=== PATIENT | female | born 1980 | race Caucasian/White ===

== ENCOUNTER 2018-11-20 19:20 | Emergency (ER) | payer OTHER ==
[~2018-11-20] VITALS: Ht 170.2 cm; Wt 83.5 kg
[2018-11-20 20:06] VITALS: Ht 170.2 cm; Wt 83.5 kg
[2018-11-20 22:21] VITALS: BP 142/87
== END 2018-11-20 22:21 | disposition home or self-care (01) ==
LOC: ED 19:20
DX: L02.213 Cutaneous abscess of chest wall (principal); L60.0 Ingrowing nail; E11.9 Type 2 diabetes mellitus without complications
CPT/HCPCS: J2001

== ENCOUNTER 2018-11-23 08:17 | Emergency (ER) | payer OTHER ==
[~2018-11-23] VITALS: Ht 167.6 cm; Wt 84.8 kg
[2018-11-23 08:22] VITALS: BP 126/89; Ht 167.6 cm; Wt 84.8 kg
== END 2018-11-23 11:10 | disposition home or self-care (01) ==
LOC: ED 08:17
DX: L60.0 Ingrowing nail (principal); Z48.01 Encounter for change or removal of surgical wound dressing
CPT/HCPCS: J2001

== ENCOUNTER 2018-12-19 13:04 | Inpatient (IN) | payer OTHER ==
[~2018-12-19] VITALS: Ht 167.6 cm; Wt 83.9 kg
[2018-12-19 13:07] VITALS: Ht 167.6 cm; Wt 83.9 kg
--- NOTE | 2018-12-19 15:09 | NUR ---
PT CAME TO THE ED TODAY WITH CO ABCESS TO R SIDE OF LABIA X 3 DAYS. PT STATES HAVING HX OF SAME BUT TOWARD THE OUTER PART. PT HAS NO OTHER SYMPTOMS. WILL CONTINUE TO MONITOR
--- NOTE | 2018-12-19 15:20 | NUR ---
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
[2018-12-19 16:02] LABS: BASOPHIL % 0.3 % (0-2); PLATELET COUNT 182 x10^3mcL (130-400); RED CELL DISTRIBUTION WIDTH 13.2 % (11.5-14.5)
[2018-12-19 16:04] LABS: UA SPECIFIC GRAVITY <=1.005 (1.005-1.035); microscopic required? YES; urine erythrocyte 3+ (NEGATIVE)
[2018-12-19 16:34] LABS: AMPHETAMINE QUAL UR NONE DETECTED (See below)
[2018-12-19 16:36] LABS: ALKALINE PHOSPHATASE 130 U/L (46-116); ALT/SGPT 8 U/L (14-59); AST/SGOT 7 U/L (15-37); BILIRUBIN TOTAL 0.7 mg/dL (0.20-1.00); CALCIUM 8.2 mg/dL (8.5-10.1); CARBON DIOXIDE 29.1 mmol/L (21-32); CHLORIDE SERUM 99 mmol/L (98-107); CREATININE SERUM 0.9 mg/dL (0.6-1.0); GFR1 > 60 mL/min; HDL CHOLESTEROL 46 mg/dL (40-60); LIPASE 150 IU/L (73-393); POTASSIUM SERUM 3.9 mmol/L (3.5-5.1); SODIUM SERUM 134 mmol/L (136-145); T4(THYROXINE) 9.1 ug/dL (4.7-13.3); TOTAL PROTEIN, SERUM 6.9 g/dL (6.4-8.2)
[2018-12-19 16:37] LABS: CHOLESTEROL 204 mg/dL (<200)
[2018-12-19 16:38] LABS: GLUCOSE SERUM 492 mg/dL (74-106)
--- NOTE | 2018-12-19 17:01 | NUR ---
PT RESTING COMFORTABLY ON GURNEY WITH NAD. BF AT BEDSIDE. WILL CONTINUE TO MONITOR.
[2018-12-19] MEDS ORDERED: FORTAMET1000 MG PO (17:58)
[2018-12-19] MEDS ORDERED: LIPI20 PO (17:58)
[2018-12-19] MEDS ORDERED: ACT30 PO (18:00)
--- NOTE | 2018-12-19 18:35 | NUR ---
REPORT GIVEN TO LISA FAUSTIN ON MS FOR FURTHER CARE OF PT
--- NOTE | 2018-12-19 19:00 | NUR ---
RECEIVED PT FROM ED VIA JACKIE, CAME IN DUE TO RIGHT LABIA PAIN SINCE TUESDAY. AAOX4. C/O 08/14 HEADACHE. DENIES DIZZINESS. ABLE TO FOLLOW COMMANDS. NO SOB NOTED, LUNG SOUNDS CTA. DENIES CHEST PAIN/PRESSURE, IO=107. DENIES ABDOMINAL DISCOMFORT. BOWEL SOUNDS ACTIVE. C/O PRESSURE ON URINATION, 08/14 RIGHT FLANK PAIN. C/O 6/10 RLE PAIN AND TINGLING SENSATION ON RLE. W/ PACKING ON THE RIGHT LABIA COVERED COVERED W/ DRESSING, S/P INCISION AND DRAINAGE AT ED. NOTED SANGUINEOUS DRAINAGE. W/ MULTIPLE SCABS ON RUE AND BLE FROM MOSQUITO BITES. IV SITE PATENT AND INTACT. SIDE RAILS UPX2. CALL LIGHT ON REACH. TMJR=915.4. COOLING MEASURES INTIATED. ENDORSED TO PRIMARY NURSE DINORA FOR CONTINUITY OF CARE
[2018-12-19 19:22] VITALS: BP 135/85
--- NOTE | 2018-12-19 22:28 | NUR ---
PT STATED I CAN'T TAKE TRAMADOL NOR HYDROCODONE THEY BOTH MAKES ME ITCH , I NORMALY TAKES TYLENOL #3 FOR PAIN AND I'M OK WITH IT , MEDICATE PT WITH TYLENOL #3 FOR GENERALIZED BODY ACHE AND H/A. WILL MONITOR PT CLOSELY .
--- NOTE | 2018-12-19 22:40 | NUR ---
OBTAINED WC AND SENT IT TO THE LAB ORDERED .
--- NOTE | 2018-12-20 01:57 | NUR ---
REPLACED RIGHT TERESA DRESSING PER PT SHE WENT TO THE BATHROOM AND THE DRESSING FELL OFF , NO DRAINAGE NOTED, PACKING INPLACE .PT DENY PAIN AT THE MOMENT .
[2018-12-20 04:31] VITALS: BP 104/69
--- NOTE | 2018-12-20 05:09 | NUR ---
I HAVE REVIEWED THE DATA COLLECTION BY [employer] REFINER BATCH MIXER (NAME):DINORA CASE ENTERED ON (DATE/TIME): I CONCUR WITH THE DATA AND ANY EXCEPTIONS OR COMMENTS ARE LISTED BELOW:
[2018-12-20 06:12] LABS: CALCIUM 7.4 mg/dL (8.5-10.1); CARBON DIOXIDE 24.6 mmol/L (21-32); CHLORIDE SERUM 106 mmol/L (98-107); CREATININE SERUM 0.6 mg/dL (0.6-1.0); GFR1 > 60 mL/min; GLUCOSE SERUM 212 mg/dL (74-106); POTASSIUM SERUM 3.5 mmol/L (3.5-5.1); SODIUM SERUM 139 mmol/L (136-145)
--- NOTE | 2018-12-20 06:21 | NUR ---
POST TYLENOL #3 PT DENY PAIN , ALL DUE MEDS GIVEN NO REACTION NOTED, PIV INTACT INFUSING WELL , DRESSING TO RIGHT LABIA INTACT NO DRAINAGE NOTED .
[2018-12-20 07:05] LABS: BASOPHIL % 0.2 % (0-2); PLATELET COUNT 157 x10^3mcL (130-400); RED CELL DISTRIBUTION WIDTH 13.2 % (11.5-14.5)
--- NOTE | 2018-12-20 07:05 | NUR ---
RECEIVED REPORT FROM DINORA ISBELL AT BEDSIDE, PT IN BED IN NO ACUTE DISTRESS
--- NOTE | 2018-12-20 07:46 | NUR ---
PT RESTING IN BED, IN NO ACUTE DISTRESS, VERBAL, ABLE TO MAKE NEEDS KNOWN, CALM AND COOPERATIVE, NO FACIAL DROOP/SLURRED SPEECH, PERRLA, NO REDNESS/DRAINAGE, DENIED PAIN/CP/PALPITATION, DENIED N/V/D, MEDSURG, RESP EVEN, NO SOB/COUGH, RA, CHEST RISE SYMMETRICALLY, ABD ROUND AND NON-TENDER TO TOUCH, BS ACTIVE X 4, PALP PULSES, CAP REFILL < 3S, SEE SKIN ASSESSMENT, SKIN C/D/W, IV PATENT AND INFUSING WELL, DRESSING CDI, AMBULATORY, CONTINENT, ALL NEEDS ADDRESSED AT THIS TIME, SAFETY PROTOCOL MAINTAINED, COTNINUE TO MONITOR
--- NOTE | 2018-12-20 08:32 | NUR ---
AM MED GIVEN PER MD ORDER VIA EMAR, TOLERATED WELL, NO ASE NOTED AT THIS TIME, EDUCATED PT R/T MED, ASE AND MONITOR, VERBALLY UNDERSTANDING, PT WENT TO BATHROOM, VOID X 1, REPORTED DRESSING CAME OFF, NEW DRESSING APPLIED TO WOUND AREA TO LABIA, TOLERATED WEL, CONTINUE TO MONITOR
[2018-12-20 09:02] VITALS: BP 108/69
--- NOTE | 2018-12-20 11:31 | NUR ---
PT REPORTED PAIN TO SURGICAL AREA, 09/13, DULL, MEDICATED PER PRN ORDER VIA EMAR, TOLERATED WELL, DRESSING C/D/I, BS CHECKED, INSULIN GIVEN PER SLIDING SCALE VIA EMAR , TAKEN WELL, EDUCATED R/T MED, DM, INSULIN, ASE AND MONITOR GIVEN TO PT, VERBALLY UNDERSTANDING, ALL NEEDS ADDRESSED AT THIS TIME, SAFETY PROTOCOL MAINTAINED, CONTINUE TO MONITOR
--- NOTE | 2018-12-20 13:15 | NUR ---
PT RESTING IN BED, IN NO ACUTE DISTRESS, DENIED PAIN/DISCOMFORT AT THIS TIME, TOLERATED LUNCH WELL, ALL NEEDS ADDRESSED AT THIS TIME, WATER PITCHER CHANGED AND REFILLED, CONTINUE TO MONITOR
[2018-12-20 16:34] VITALS: BP 112/73
--- NOTE | 2018-12-20 16:38 | NUR ---
PT REPORTED PAIN TO SURGICAL AREA, 09/13, DULL, LOCAL, MEDICATED PER PRN ORDER VIA EMAR, TOLERATED WELL, DRESSING C/D/I, BS CHECKED, INSULIN GIVEN PER SLIDING SCALE VIA EMAR , TAKEN WELL, EDUCATED R/T MED, DM, INSULIN, ASE AND MONITOR GIVEN TO PT, VERBALLY UNDERSTANDING, ALL NEEDS ADDRESSED AT THIS TIME, SAFETY PROTOCOL MAINTAINED, CONTINUE TO MONITOR
--- NOTE | 2018-12-20 17:39 | NUR ---
PT IN BED, IN NO ACUTE DISTRESS, RESP EVEN, MEDSURG, IV PATENT AND INFUSING WELL, DRESSING CDI, DENIED PAIN/DISCOMFORT, DRESSING CDI, AMBULATORY, CONTINENT, TOLERATED MEAL WELL, ALL NEEDS ADDRESSED AT THIS TIME, SAFETY PROTOCOL MAINTAINED, CONTINUE TO MONITOR
--- NOTE | 2018-12-20 19:10 | NUR ---
REC'D PT FROM DAY NURSE. PT RESTING IN BED. AAOX4, SPEECH CLEAR, FOLLOWS COMMANDS. C/O THROBBING OATES /10 AND PRESSURE TO EARS. ALSO C/O PAIN TO R VAGINAL AREA S/P I&D 09/13, THROBBING. WILL GIVE PAIN MEDS PER ORDER. MED SURG, NO TELE. DENIES CP, DIZZINESS, OR PALPITATIONS. DENIES RESP DISTRESS OR SOB. BREATHING EVEN/UNLABORED ON RA. ABD SOFT/ROUND. DENIES ABD PAIN, TENDERNESS, OR N/V. VOIDING FREELY. AMBULATORY. S/P I&D R LATERAL LABIA MAJORA POD #1. NOTED IODOFORM PACKING STICKING OUT. NO DRESSING APPLIED OVER PACKING. PT STATES "IT KEEPS FALLING OUT WHEN I PEE." PT IS MENSTRUATING- DAY #4, HEAVY FLOW. REPORTS CHANGING "ULTRA" TAMPON AROUND EVERY 4 HOURS. IV TO LW PATENT AND INFUSING, SITE WNL. CALL LIGHT WITHIN REACH, BED AT LOWEST POSITION. WILL CONTINUE TO MONITOR.
--- NOTE | 2018-12-20 19:48 | NUR ---
SPOKE TO PHARMACY. INQUIRED IF ACTOS NEEDS TO BE HELD PRIOR TO AND AFTER HAVING CT WITH IV CONTRAST. PHARMACY TO CALL BACK.
--- NOTE | 2018-12-20 19:51 | NUR ---
DR. JAISON CHOWDHURY.
--- NOTE | 2018-12-20 19:53 | NUR ---
REC'D CALL BACK FROM DR. BLACKWOOD. MADE AWARE MORPHINE NOT VERIFIED D/T LARGE DOSE AND ALLERGY TO MORPHINE. REC'D ORDER FOR TORADOL 30 MG IVP Q6 FOR PAIN.
--- NOTE | 2018-12-20 20:07 | NUR ---
REC'D CALL BACK FROM PHARMACY. NO CONTRAINDICATION WITH ACTOS AND IV CONTRAST. DO NOT HAVE TO HOLD ACTOS BEFORE OR AFTER GIVEN IV CONTRAST.
--- NOTE | 2018-12-20 20:13 | NUR ---
CALLED CT. REPORTED CT WILL BE DONE IN AM SINCE PT HAD EATEN ALREADY.
--- NOTE | 2018-12-20 20:48 | NUR ---
2X2 GAUZE APPLIED AT SURGICAL SITE- R LATERAL LABIA MAJORA. SECURED WITH SURESITE DRESSING.
[2018-12-20 21:10] VITALS: BP 111/72
--- NOTE | 2018-12-21 01:39 | NUR ---
PT RESTING IN BED WITH EYES CLOSED. BREATHING EVEN/UNLABORED ON RA. NO S/SX OF PAIN NOTED. CALL LIGHT WITHIN REACH, BED AT LOWEST POSITION. WILL CONTINUE TO MONITOR.
--- NOTE | 2018-12-21 03:40 | NUR ---
PT C/O THROBBING 7/10 OATES AND SURGICAL SITE PAIN. TORADOL GIVEN PER ORDER. WILL MONITOR FOR RELIEF.
[2018-12-21 05:12] VITALS: BP 105/69
[2018-12-21 06:32] LABS: BASOPHIL % 0.4 % (0-2); PLATELET COUNT 156 x10^3mcL (130-400); RED CELL DISTRIBUTION WIDTH 12.7 % (11.5-14.5)
[2018-12-21 06:37] LABS: CALCIUM 7.6 mg/dL (8.5-10.1); CARBON DIOXIDE 25.8 mmol/L (21-32); CHLORIDE SERUM 107 mmol/L (98-107); CREATININE SERUM 0.6 mg/dL (0.6-1.0); GFR1 > 60 mL/min; GLUCOSE SERUM 238 mg/dL (74-106); MAGNESIUM 1.6 mg/dL (1.8-2.4); POTASSIUM SERUM 3.8 mmol/L (3.5-5.1); SODIUM SERUM 139 mmol/L (136-145)
--- NOTE | 2018-12-21 06:59 | NUR ---
PT RESTING IN BED WITH EYES CLOSED. AWAKENS WITH VERBAL STIMULI. BREATHING EVEN/UNLABORED ON RA. C/O PRESURE TO EARS. WILL GIVE TYLENOL PER ORDER. DENIES PAIN TO VAGINAL AREA AT THIS TIME. DRESSING KIND OF COMING OFF BUT PT WOULD LIKE TO REST STILL. REPORTS CHANGING TAMPON TWICE LAST NIGHT. CT ABD WITH IV CONTRAST THIS AM. PT AWARE NOT TO EAT BREAKFAST TRAY UNTIL CT IS DONE. WILL ENDORSE TO DAY NURSE.
--- NOTE | 2018-12-21 07:05 | NUR ---
RECEIVED REPORT FROM CELSO RN AT BEDSIDE, PT IN BED IN NO ACUTE DISTRESS
--- NOTE | 2018-12-21 07:19 | NUR ---
PT RESTING IN BED, IN NO ACUTE DISTRESS, VERBAL, ABLE TO MAKE NEEDS KNOWN, CALM AND COOPERATIVE, NO FACIAL DROOP/SLURRED SPEECH, PERRLA, NPO AT THIS TIME FOR CT SCAN THIS AM, PT MADE AWARE, VERBALLY UNDERSTANDING, NO REDNESS/DRAINAGE, DENIED PAIN/CP/PALPITATION, DENIED N/V/D, MEDSURG, RESP EVEN, NO SOB/COUGH, RA, CHEST RISE SYMMETRICALLY, ABD ROUND AND NON-TENDER TO TOUCH, BS ACTIVE X 4, PALP PULSES, CAP REFILL < 3S, SEE SKIN ASSESSMENT, SKIN C/D/W, IV PATENT AND INFUSING WELL, DRESSING CDI, AMBULATORY, CONTINENT, ALL NEEDS ADDRESSED AT THIS TIME, SAFETY PROTOCOL MAINTAINED, COTNINUE TO MONITOR
--- NOTE | 2018-12-21 07:51 | NUR ---
CT STAFF CALLED AND INFORMED PT WILL HAVE CT SCAN APPROXIMATELY AT 10AM, RECONFIRMED PT NEEDED TO BE NPO PRIOR PROCEDURE, NAFISA CARLOS ORDER PER PT WOUND CONDITION AND LOCATION, SAID WILL PROVIDE, PT MADE AWARE, VERBALLY UNDERSTANDING
--- NOTE | 2018-12-21 08:35 | NUR ---
SEEN BY WOUND NURSE KEVIN ZABALA RN, WOUNG DRESSING CHANGED TO LABIA AREA, PAIN MEDICATED PRIOR PROCEDURE, TOLERATED PROCEDURE WELL, NO ACTIVE BLEEDING/DRAINAGE/ FOUL ODOR NOTED, DRESSING CDI, WOUND PIC TAKEN AND KEPT IN CHART PER POLICY, PT IN BED IN NO ACUTE DISTRESS, CONTINUE TO MONITOR
--- NOTE | 2018-12-21 08:40 | NUR ---
WOUND CARE EVALUATION NOTE: REASON FOR EVALUATION: S/P I&D RIGHT LABIA ABSCESS SKIN ASSESSMENT DONE WITH THIS 38 Y/O FEMALE PT ADMITTED TO [facility] [place] WITH I&D AT ED ON RIGHT LABIA. PAST MEDICAL HX INCLUDES DM. PT IS AWAKE. AAX4 SKIN WARM AND DRY,BLE DARK PIGMENTATION WITH DRY HEALED SCARS,NO HAIR GROWTH NO EDEMA.DORSAL PEDAL PULSES PRESENT AND NORMAL. PLAN OF CARE DISCUSSED WITH PRIMARY RN AND PT. WOUND CARE TEACHING PROVIDES, NEED REINFORCEMENT. PT. VERBALIZING UNDERSTANDING. INTEGUMENTARY: -SURGICAL WOUND RIGHT LABIA 1X0.1X1.3CM WOUND BED IS CLEAN 100% GRANULATING TISSUE,SMALL AMOUNT SEROUS DRAINAGE NO ODOR,RICHA WOUND SKIN INTACT INDURATION NOTICE, DENIAL OF PAIN -BLE DRY SCABS AND OLD HEALED SCARS, SKIN INTACT RECOMMENDATIONS: -CT SCAN PENDING -RINSE RIGHT LABIA SURGICAL WOUND WITH NS, PAT DRY, PACK WITH 1/4" IODOFOAM STRIPS AND COVER WITH DRY DRESSING AND SECURE WITH TAPE QD AND PRN IF SOILING -KEEP AREA DRY AND CLEAN AT ALL TIMES -CONTINUE TO WOUND CARE TEACHING EACH DRESSING CHANGE PLEASE CONTACT WOUND CARE NURSE FOR ANY QUESTION AND CHANGE OF WOUND CONDITION.
[2018-12-21 08:48] VITALS: BP 121/66
--- NOTE | 2018-12-21 08:55 | NUR ---
AM MED GIVEN PER MD ORDER VIA EMAR, TOLERATED WELL, NO ASE NOTED AT THIS TIME, EDUCATED PT R/T SAFETY, MED, ASE AND MONITOR, VERBALLY UNDERSTANDING, PT WENT TO BATHROOM, VOID X 1, TOLERATED WEL, CONTINUE TO MONITOR
--- NOTE | 2018-12-21 10:29 | NUR ---
CALLED CT STAFFS, SAID WILL P/U PT IN 5 MINS, PT HEPLOCKED, DENIED PAIN AT THIS TIME, CONTINUE TO MONITOR
--- NOTE | 2018-12-21 10:34 | NUR ---
PT WENT TO CT SCAN PER MD ORDER, IN NO ACUTE DISTRESS, HEPLOCKED
--- NOTE | 2018-12-21 11:15 | NUR ---
PT BACK FROM CT SCAN, IN NO ACUTE DISTRESS, RESTART IV PER ORDER, BS ACHECKED, INSULIN COVERAGE GIVEN PER SLIDING SCALE VIA EMAR, TOLERATED WELL, PT REQUESTED FOOD, DIETITIAN MADE AWARE, PT DENIED PAIN/DISCOMFORT AT THIS TIME, SAFETY PROTOCOL MAINTAINED, CONTINUE TO MONITOR
--- NOTE | 2018-12-21 13:40 | NUR ---
[facility]. [facility] 2. DM diet education provided.
--- NOTE | 2018-12-21 13:40 | NUR ---
Initial Nutrition Assessment: 240/B [place] IA HR Dx: uncontrolled diabetes, buttock abscess PMHx: DM type 2, thyroid tumor s/p resection PSHx: thyroid tumor s/p resection Labs: BG 238H, ALB 3.0L, MG 1.6L, CHOL 204H, A1C 10.5H Meds: Colace, D 50%, Humulin, Lipitor, vancomycin, Zofran, zosyn Diet: CCHO PO intake since admission: (12/20) dinner, lunch 85%, breakfast 75% Ht: 167.64 cm (66") Wt: 83.9 kg (184#) BMI: 29.9 kg/m2 Bed scale: 84 kg IBW: 130# (59 kg) %IBW: 141 UBW: 189# Age: 38/F Food Allergies: NKFA Skin: s/p incision on drainage on R labia, w/packing noted Mihir: 21 Edema: none GI: Last BM: 12/21 Per H&P, Pt is a 38 YO F, presenting with increasing pain and swelling to the right vaginal area. RD Note (12/21): Patient was alert and oriented and said that she has good appetite. Patient said that she walks 7-8 miles per day due to her job. Also, patient said that during her pregnancies, she went to the [employer] program and received education about diabetes management. Patient was NPO this morning for CT scan. Problem with: N/V/D/C: constipation, patient said that she is scared due to the abscess and pain Problems with: Chewing: Swallowing: none Current appetite: good Recent wt change: lost 5# x 1 month %wt change: 2.6 Vitamin/Supplement use: none Special diet at home: Regular Physical activity: walking Nutrition education given: DM diet education was provided using [facility] handout on 'Type 2 Diabetes Nutrition Therapy'. Concepts like high fiber foods and portion control were discussed. Patient verbalized understanding and did not have any questions at this time. Food-drug interactions: Colace: high fiber w/ 0332-9978 ml fluid/day Education given: yes Estimated Nutritional Needs Based on adjusted body weight (65 kg) Energy: 1978-0557 kcal/day (30-35 kcal/kg for wound) Protein: 78-90 g/day (1.2-1.4 g/kg for wound healing) Fluid: 1281-6165 mL/day (1 mL/kcal) Nutrition Diagnosis: 1. Increased nutrient needs related to increased metabolic demands as evidenced by wounds. Intervention 1. [facility]. 2. DM diet education provided. Monitor/Evaluate Goal: PO intake at least 75% of estimated needs Monitor: PO intake, Labs, GI function F/U in 7 days as low risk 12/28
--- NOTE | 2018-12-21 16:03 | NUR ---
PT REPORTED NAUSEATED, MEDICATED PER PRN ORDER VIA EMAR, TOLERATED WELL, NO ASE NOTEDF AT THIS TIME, SEEN BY DR LEDEZMA, DR LEDEZMA MADE AWARE OF PT UPDATED CONDITION AND LAB VALUE, NEW ORDER OBTAINED, CHARGE NURSE BRITTANY MADE AWARE, PT IN BED IN NO ACUTE DISTRESS
[2018-12-21 16:36] VITALS: BP 116/79
--- NOTE | 2018-12-21 17:03 | NUR ---
PT REPORTED BURNING SENSATION W/ KCL INFUSION THERAPY, INFUSING STOP STAT, NO OTHER S/S OF REDNESS/SWOLLEN/TEMP NOTED AT IV SITE AND SURROUNDING AREA, IV PATENT AND FLUSHIGN WELL, DR LEDEZMA MADE AWARE, NEW ORDER OBTAINED TO DC CURRENT K-RIDER, ORDER TO HAVE K-RIDER 40MEQ WITH 25MG LIDOCAIN, PHARMACIST MADE AWARE, CHARGE NURSE BRITTANY MADE AWARE, PT MADE AWARE, PT IN BED IN NO ACUTE DISTRESS
--- NOTE | 2018-12-21 17:19 | NUR ---
PT REFUSED INSULIN, EDUCATED R/T COMPLIANCE W/ INSULIN THERAPY, STILL REFUSED, SAID NOT IN THE MOOD OF EATING DINNER AND WILL NOT TAKE INSULIN, DR LEDEZMA MADE AWARE, CHARGE NURSE BRITTANY MADE AWARE, PT ASKED TO HAVE DIET SPRITE, PROVIDED PER PT REQUESTED, TAKEN WELL, IN NO ACUTE DISTRESS, CONTINUE TO MONITOR
--- NOTE | 2018-12-21 17:37 | NUR ---
PT IN BED, IN NO ACUTE DISTRESS, RESP EVEN, MEDSURG, IV PATENT AND INFUSING WELL, DRESSING CDI, DENIED PAIN/DISCOMFORT, DRESSING CDI, AMBULATORY, CONTINENT, DINNER TRAY AT BEDSIDE, ALL NEEDS ADDRESSED AT THIS TIME, SAFETY PROTOCOL MAINTAINED, WILL CONTINUE TO MONITOR
--- NOTE | 2018-12-21 19:30 | NUR ---
PT IS A/O x4. MED SURG. DENIES ANY CHEST PAIN OR PRESSURE. PULSES ARE PRESENT. NO EDEMA NOTED. LUNGS CLEAR IN ALL FEILDS. ON RA, DENIES ANY SOB. EQUAL CHEST RISE AND FALL. NO SIGN OF RESP DISTRESS. BOWEL SOUNDS PRESENT X4. PT COMPLAIN OF UPSET STOMACH AFTER THE CONTRAST TODAY. PT STATES SHE IS ON HER MENSTRAL. DRESSING NOTED ON R LABIA. DRESSING IS CLEAN AND INTACT. PER PT IT WAS CHANGE BY AM SHIFT AND WILL MOST LIKELY WILL NEED TO BE CHANGED AFTER SHE VOIDS. NO ACTIVE DRAINAGE NOTED. DENIES ANY PAIN AT THIS TIME. IV ON LFA IS INTACT AND PATENT. IV ON RFA INTACT AND PATENT. NO SIGN OF INFLTRATION OR IRRITATION NOTED ON BOTH IVS. 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 PRECAUTIONS IN PLACE. BED IS AT LOWEST SETTING. CALL LIGHT WITHIN REACH. WILL CONTINUE TO MONITOR.
--- NOTE | 2018-12-21 20:24 | NUR ---
IV ON LFA BECAME INFILTRATED. PT COMPLAIN OF PAIN ON AREA. IV WAS REMOVED. CATH INTACT. PT TOLERATED WELL. WILL CONTINUE TO MONITOR.
[2018-12-21 20:48] VITALS: BP 140/86
--- NOTE | 2018-12-21 21:41 | NUR ---
OUTER DRESSING ON R LABIA FELL WHEN PT VOIDED IN THE BATHROOM. PACKING WAS INTACT. AREA WAS DRY. REPACED OUTER DRESSING AND SECURED WITH TAPE. PT TOLERATED WELL.
--- NOTE | 2018-12-22 00:58 | NUR ---
PT IS RESTING IN BED WITH BOTH EYES CLOSED. PT WAS COMPLAINING OF PAIN ON R LABIA, SHARP AND REQUESTED PAIN MEDICATION. SEE EMAR. ON CONTACT ISO. BED IS AT LOWEST SETTING. CALL LIGHT WITHIN REACH. WILL CONTINUE TO MONITOR.
[2018-12-22 05:20] VITALS: BP 117/63
--- NOTE | 2018-12-22 06:23 | NUR ---
PT IS RESTING IN BED. DENIES ANY PAIN OR DISTRESS. NEW DRESSING PLACED. PT TOLERATED WELL. NO ACUTE EVENT OCCURED AT NIGHT. BED IS AT LOWEST SETTING. CALL LIGHT WITHIN REACH. WILL ENDORSE TO AM NURSE.
--- NOTE | 2018-12-22 07:33 | NUR ---
PT LYING IN BED EYES CLOSED, AROUSABLE TO VOICE. BREATHING EQUAL/ UNLABORED ON RA. NO ACUTE DISTRESS/ PAIN AT THIS TIME. IV ABX RUNNING AT 133 ML/HR. NO REDNESS/ SWELLING TO IV SITE. BED IN LOW POSITION, CALL LIGHT IN REACH, WILL CONTINUE TO MONITOR
[2018-12-22 08:13] VITALS: BP 105/70
--- NOTE | 2018-12-22 10:30 | NUR ---
PT IV HAD NO BLOOD RETURN/ NOT FLUSHING. NO REDNESS/ SWELLING TO IV SITE. IV REMOVED WITH CATHETER INTACT. NEW IV STARTED IN L. FOREARM, FLUSHING WELL WITH GOOD BLOOD RETURN. PT STATES SHE WENT TO THE BATHROOM AND PULLED OUT PACKING TO R. VAGINAL WOUND. PT PRE MEDICATED FOR RE PACKING. WILL CONTINUE TO MONITOR
--- NOTE | 2018-12-22 11:23 | NUR ---
PROVIDED WOUND CARE TO PT Artur NELSON. CLEANSED WITH NS, PACKED WITH IODOFORM, AND PLACED DRESSING OVER. PT VARUN WELL. ENCOURAGED PT TO LEARN HOW TO CLEANSE AND PACK WOUND. PT STATED "I DO NOT WANT TO DO IT ON MY OWN AND THAT I CAME TO THE ER TO CARE FOR MY LAST WOUND" WILL CONTINUE TO MONITOR
--- NOTE | 2018-12-22 12:35 | NUR ---
PT LYING IN BED A/A, BREATHING EQUAL/ UNLABORED ON RA. IV ABX RUNNING AT 100ML/HR. NO REDNESS/ SWELLING TO IV SITE. PT HAS MILD PAIN/ STATES SHE DOES NOT NEED PAIN MEDS AT THIS TIME. BED IN LOW POSITION, CALL LIGHT IN REACH, FRIEND AT BED SIDE. WILL CONTINUE TO MONITOR
--- NOTE | 2018-12-22 15:55 | NUR ---
PT STANDING IN BATHROOM, A/A. BREATHING EQUAL/ UNLABORED ON RA. IVF RUNNING AT 80 ML/HR. NO REDNESS/SWELLING TO IV SITE. PT IN NO ACUTE DISTRESS. C/O LEG PAIN BUT IS TOLERATING AT THIS TIME. WILL CONTINUE TO MONITOR
[2018-12-22 16:02] VITALS: BP 130/82
--- NOTE | 2018-12-22 18:42 | NUR ---
PT LYING IN BED A/A, BREATHING EQUAL/ UNLABORED ON RA. IVF RUNNING AT 80 ML/HR. NO REDNESS/ SWELLING TO IV SITE. NO ACUTE PAIN/ DISTRESS. PACKING TO R. LABKIMBERLY, CDI. BED IN LOW POSITION, CALL LIGHT IN REACH, SAFETY PRECAUTIONS IN PLACE. WILL ENDORSE TO ON COMING SHIFT
--- NOTE | 2018-12-22 19:10 | NUR ---
[facility]. PT AOX4, DENIES CP/PRESSURE. MED SURG PT, DENIES CP/PRESSURE. DENIES SOB/DIFFICULTY BREATHING, ON RA. R. LATERAL LABIA S/P I&D WITH PACKING IN PLACE AND DSG. IV TO LFA, INTACT AND PATENT. BED IN LOWEST POSITION. CALL LIGHT WITHIN REACH. WILL CONTINUE TO MONITOR.
[2018-12-22 19:32] VITALS: BP 105/71
--- NOTE | 2018-12-23 03:35 | NUR ---
PT RESTING IN BED. RR EVEN AND UNLABORED. IN NO ACUTE DISTRESS. CALL LIGHT WITHIN REACH. BED IN LOWEST POSITION. WILL CONTINUE TO MONITOR.
[2018-12-23 04:24] VITALS: BP 130/87
[2018-12-23 06:36] LABS: PLATELET COUNT 165 x10^3mcL (130-400); RED CELL DISTRIBUTION WIDTH 13.1 % (11.5-14.5)
--- NOTE | 2018-12-23 06:42 | NUR ---
OFFERED TO CHANGE PT PERINEAL DSG, PT REFUSED DSG CHANGE AT THIS TIME.
--- NOTE | 2018-12-23 07:17 | NUR ---
PT SITTING UP IN BED A/A. BREATHING EQUAL/UNLABORED ON RA. PT C/O MILD NAUSEA, PREV NURSE GAVE ZOFRAN. BANDAGE TO R. LABIA IS OFF, PT REFUSING WOUND CARE AT THIS TIME. EDUCATED PT ON THE NEED TO KEEP THE WOUND CLEAN/ COVERED. WILL REINFORCE EDUCATION. NO ACUTE PAIN/ DISTRESS. IVF RUNNING AT 80 ML/HR. NO REDNESS/ SWELLING TO IV SITE. BED IN LOW POSITION, CALL LIGHT IN REACH, SAFETY PRECAUTIONS IN PLACE, WILL CONTINUE TO MONITOR
[2018-12-23 07:33] LABS: CALCIUM 7.9 mg/dL (8.5-10.1); CARBON DIOXIDE 26.1 mmol/L (21-32); CHLORIDE SERUM 106 mmol/L (98-107); CREATININE SERUM 0.8 mg/dL (0.6-1.0); GFR1 > 60 mL/min; GLUCOSE SERUM 233 mg/dL (74-106); MAGNESIUM 1.9 mg/dL (1.8-2.4); POTASSIUM SERUM 4.5 mmol/L (3.5-5.1); SODIUM SERUM 140 mmol/L (136-145)
[2018-12-23 08:04] VITALS: BP 133/80
[2018-12-23] MEDS ORDERED: LEVAQUIN750 MG PO (10:45)
--- NOTE | 2018-12-23 11:52 | NUR ---
WOUND TO R. LABIA CLEANSED WITH NS. PACKED WITH IODOFORME AND COVERED WITH BANDAGE. PT VARUN WELL. WILL CONTINUE TO MONITOR
[2018-12-23 12:00] VITALS: BP 110/73
--- NOTE | 2018-12-23 12:08 | NUR ---
PT LYING IN BED A/A. BREATHING EQUAL/UNLABORED ON RA. IV ABX RUNNING AT 100ML/HR. NO REDNESS/SWELLING TO IV SITE. PT C/O PAIN IN LEG AND LABIA. STATES PAIN IS TOLERABLE AT THIS TIME. BED IN LOW POSITION, CALL LIGHT IN REACH, SAFETY PRECAUTIONS IN PLACE. WILL CONTINUE TO MONITOR
[2018-12-23 14:14] LABS: BAND NEUTROPHIL 1 % (0-10); MONOCYTE 9 % (0-7); SEGMENTED NEUTROPHILS 61 % (37-75)
[2018-12-23 14:15] LABS: PLATELET MORPHOLOGY PLATELETS NORMAL; rbc morphology (normal/abnorm) NORMAL (NORMAL)
--- NOTE | 2018-12-23 15:29 | NUR ---
CALLED AND SPOKE TO ACCOUNT SPECIALIST, RUBIO, SHE WILL TRY TO CONTACT PATIENT'S INSURACE [facility] TO ARRANGE DIALY WOUND CARE.
--- NOTE | 2018-12-23 15:50 | NUR ---
PT LYING IN BED WITH EYES CLOSED, AROUSABLE TO VOICE. BREATHING EQUAL/ UNLABORED ON RA. IVF RUNNING AT 80 ML/HR. NO REDNESS/SWELLING TO IV SITE. NO ACUTE DISTRESS/ PAIN AT THIS TIME. BED IN LOW POSITION, CALL LIGHT IN REACH, SAFETY PRECAUTIONS IN PLACE. WILL CONTINUE TO MONITOR
[2018-12-23 17:21] VITALS: BP 118/78
--- NOTE | 2018-12-23 18:36 | NUR ---
PT LYING IN BED A/A. BREATHING EQUAL/ UNLABORED ON RA. IVF RUNNING AT 80 ML/HR. NO REDNESS/ SWELLING TO IV SITE. DRESSING TO VASYL RAMOS. BED IN LOW POSITION, CALL LIGHT IN REACH, SAFETY PRECAUTIONS IN PLACE. WILL ENDORSE TO ON COMING NURSE
--- NOTE | 2018-12-23 18:42 | NUR ---
RECEIVED CALL BACK FROM CM. [facility] FOR DAILY WOUND CARE WAS ARRANGED THROUGH ALL [facility] [phone]. THEY HAD CONTACT PATIENT AND WILL START TREATMENT TOMORROW.
--- NOTE | 2018-12-23 19:35 | NUR ---
PT GIVEN DISCHARGE EDUCATION AND INFORMATION. PT VERBALIZES UNDERSTANDING. IV REMOVED, TIP INTACT. PT IN NO ACUTE DISTRESS. WHEELED DOWN BY PAPER MACHINE SUPERVISOR VIA WHEELCHAIR.
== END 2018-12-23 19:36 | disposition home health service (06) | DRG 364 ==
LOC: ED 13:04 → MU 18:17
PROVIDERS: Emergency Medicine; ADMIT Internal Medicine Pulmonary Disease
PROC: 0W9N0ZZ Drainage of Female Perineum, Open Approach (ICD-10-PCS; principal; 2018-12-19)
DX: L02.215 Cutaneous abscess of perineum (principal); E11.65 Type 2 diabetes mellitus with hyperglycemia; F12.20 Cannabis dependence, uncomplicated; E86.9 Volume depletion, unspecified; Z79.84 Long term (current) use of oral hypoglycemic drugs; Z91.14 Patient's other noncompliance with medication regimen; Z83.3 Family history of diabetes mellitus; Z71.51 Drug abuse counseling and surveillance of drug abuser; Z88.5 Allergy status to narcotic agent; Z88.8 Allergy status to other drugs, medicaments and biological substances
CPT/HCPCS: 36600; 82962; G0378; J0690; J1644; J1815; J1885; J2001; J2405; J2543; J3370; J3475; J3480; J7030; Q9967